=== PATIENT | female | born 1955 | race Caucasian/White ===

== ENCOUNTER 2019-11-21 09:15 | Inpatient (IN) | payer MEDICARE, OTHER ==
[~2019-11-21] VITALS: Ht 152.4 cm; Wt 73.0 kg
[~2019-11-21 09:15] MED LIST: AMOXICILLIN500 MG OR; BENAZEPRIL5 MG PO; CEPHALEXIN500 MG OR; CEPHALEXIN500 MG PO; CIPRO500 MG PO; CLONAZEPAM0.5 M1 PO; DIOVAN80 MG PO; GABAPENTIN300 MG PO; LORTAB 5 OR; MEDDOSEPAK OR; METFORMIN HCL500 M1 PO; PANTOPRAZOLE SO40 M1 PO; ROBITUSSIN AC10 ML PO; SYNTHROID150 MCG PO; VENLAFAXINE HCL75 M1 PO
[2019-11-21] MEDS ORDERED: LOSARTAN POTASS50 MG PO (09:47)
[2019-11-21] MEDS ORDERED: HYDROCHLOROTH12.5 MG PO (09:48)
[2019-11-21] MEDS ORDERED: LAMOTRIGINE100 MG PO (09:48)
[2019-11-21] MEDS ORDERED: VENLAFAXINE HCL75 M1 PO (09:49)
[2019-11-21] MEDS ORDERED: LIPITOR20 M1 PO (09:49)
[2019-11-21 11:00] LABS: HEMATOCRIT 37.5 % (37.0-47.0); HEMOGLOBIN 11.7 g/dl (12.0-16.0); IMMATURE GRANULOCYTES 0.3 % (0.0-5.0); MEAN CELL VOLUME 81.9 fL CALC (80.0-100.0); MEAN CORPUSCULAR HGB 25.5 pG CALC (26.0-32.0); MEAN CORPUSCULAR HGB CONC 31.2 g/L CALC (32.0-36.0); NEUT# 3.94 thou/uL (2.00-7.15); RED BLOOD COUNT 4.58 mill/uL (4.20-5.60); RED CELL DISTRI WIDTH 16.5 % (11.5-15.5)
[2019-11-21 11:23] LABS: ALBUMIN 4.2 g/dL (3.2-5.0); ALKALINE PHOSPHATASE 113 u/l (38-126); ANION GAP 12 (6-22 (CALC)); BILIRUBIN, TOTAL 0.3 mg/dL (0.0-1.4); BUN 24 mg/dL (8-23); BUN/CREATININE RATIO 30 (12-20 (CALC)); CARBON DIOXIDE 29 mmol/l (22-30); CHLORIDE 103 mmol/l (95-108); CREATININE 0.8 mg/dL (0.5-1.0); GFR > 60 ML/MIN (>=60 (CALC)); GFR FOR AFR.AMER. > 60 ML/MIN (>=60 (CALC)); POTASSIUM 3.9 mmol/l (3.5-5.1); SGOT/AST 33 u/l (9-36); SODIUM 139 mmol/l (137-146); TOTAL PROTEIN 7.3 g/dL (6.3-8.2)
[2019-11-21 13:13] VITALS: BP 158/104
[2019-11-21 15:10] VITALS: BP 140/78
[2019-11-21 18:50] VITALS: BP 134/77
[2019-11-22 03:52] VITALS: BP 152/72
[2019-11-22 07:35] VITALS: BP 169/87
[2019-11-22 18:19] VITALS: BP 183/91
[2019-11-22] MEDS ORDERED: CLONIDINE0.1 MG PO (18:21)
[2019-11-22 18:57] VITALS: BP 155/92
[2019-11-23 00:10] VITALS: BP 135/69
[2019-11-23 04:45] VITALS: BP 143/76
[2019-11-23 07:55] VITALS: BP 155/96
[2019-11-23] MEDS ORDERED: DOXYCYCL HYC100 MG PO (10:51)
[2019-11-23] MEDS ORDERED: AMOX/K CLAV875 M1 PO (10:52)
[2019-11-23 10:59] VITALS: BP 152/88
== END 2019-11-23 15:26 | disposition home or self-care (01) | DRG 603 ==
LOC: ED 09:15 → ED-I 10:33 → ED 10:33 → ED-I 11:34 → ED 11:49 → MS2 11:50
PROVIDERS: ADMIT Internal Medicine; ATTEND Internal Medicine
DX: L03.012 Cellulitis of left finger (principal); S61.253A Open bite of left middle finger without damage to nail, initial encounter; I10 Essential (primary) hypertension; F43.10 Post-traumatic stress disorder, unspecified; E78.5 Hyperlipidemia, unspecified; W55.01XA Bitten by cat, initial encounter; E03.9 Hypothyroidism, unspecified
CPT/HCPCS: J1650